=== PATIENT | female | born 1980 | race Caucasian/White ===

== ENCOUNTER 2016-10-24 14:50 | Emergency (ER) | payer OTHER ==
[~2016-10-24] VITALS: Ht 170.2 cm; Wt 66.0 kg
[2016-10-24 15:00] VITALS: TEMP 36.9; Ht 170.2 cm; Wt 66.0 kg
[2016-10-24 17:09] VITALS: O2SAT 100
[2016-10-24] MEDS ORDERED: 5-HY50CA PO (17:29)
[2016-10-24] MEDS ORDERED: NAPR-1169 PO (17:29)
--- NOTE | 2016-10-24 17:53 | DIAGNOSTIC IMAGING REPORT ---
CHEST ONE VIEW PORTABLE HISTORY: Tachycardia. EVALUATE ALTERED MENTAL STATUS/WEAKNESS COMPARISON: None. FINDINGS: The lungs are clear. Cardiac silhouette is normal in size. No pleural effusions. No pneumothorax. IMPRESSION: No acute process. Electronically signed by: Eloy Quezada M.D. 10/24/2016 5:52 PM Dictated Date/Time: 10/24/2016 5:51 PM
[2016-10-24 18:11] LABS: BASO % 0.2 %; BASO ABS # 0.01 K/uL (0-0.2); COMPLETE YES; EOS % 1.3 %; HEMATOCRIT 37.3 % (37-47); LYMPH ABS # 1.68 K/uL (1.2-3.4); MEAN CELL VOLUME 91.4 fL (80-100); MEAN CORPUSCULAR HEMOGLOBIN 31.6 pg (25-34); MEAN CORPUSCULAR HGB CONC 34.6 g/dl (32-36); MEAN PLATELET VOLUME 10.4 fL (7.4-10.4); MONO % 5.7 %; NEUT % 64.8 %; PLATELET COUNT 180 K/uL (130-400); RED BLOOD COUNT 4.08 M/uL (4.2-5.4); WHITE BLOOD COUNT 5.99 K/uL (4.8-10.8)
[2016-10-24 18:30] LABS: BLOOD UREA NITROGEN 15 mg/dl (7-18); BUN/CREATININE RATIO 20.8 (10-20); CALCIUM 9.6 mg/dl (8.5-10.1); CARBON DIOXIDE 25 mmol/L (21-32); CHLORIDE 108 mmol/L (98-107); CREATININE 0.74 mg/dl (0.60-1.20); GLUCOSE 76 mg/dl (70-99); POTASSIUM 3.8 mmol/L (3.5-5.1); SODIUM 144 mmol/L (136-145)
--- NOTE | 2016-10-24 18:54 | EMERGENCY ROOM VISIT NOTE ---
History Report prepared by Darwin: Nadeem Parks Under the Supervision of: Dr. Korey Trujillo D.O. 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 C/o swelling in thyroid area, itciness to throat, N/T to chin and L side of face. Symptoms began this AM. Pt reports episodes of tachycardia in the evening for approx 1 week. History of Present Illness The patient is a 36 year old female who presents to the Emergency Room with complaints of worsening anterior neck swelling beginning this morning. She has a history of Breezy's Disease. She states "there feels like a lump in my neck ", and believes it is likely her Thyroid. The patient has taken medication for hypothyroidism for several years. She states that she has also experienced facial tingling and itchiness. She also states that she has been experiencing intermittent episodes of palpitations and constant chest "heaviness". The patient notes that she has a history of PSVT. She states that she has been having several episodes of palpitations per day. She denies any SOB, nausea, vomiting, diarrhea, or fevers. Source of History: patient Onset: This morning Position: neck (anterior) Quality: other (swelling) Timing: worsening Associated Symptoms: + chest pain ("heaviness"), No SOB, No diarrhea, No fevers, No nausea, No vomiting Note: The patient has experienced intermittent heart palpitations, and neck itchiness and tingling. Review of Systems See HPI for pertinent positives & negatives. A total of 10 systems reviewed and were otherwise negative. Past Medical & Surgical Medical Problems: (1) Breezy's disease (2) PSVT (paroxysmal supraventricular tachycardia) Family History No pertinent family history stated. Social History Smoking Status: Never Smoker Housing Status: lives with family Occupation Status: employed Current/Historical Medications Scheduled 5-Hydroxytryptophan (5-Htp), 50 MG PO HS Levothyroxine Sodium (Levothyroxine Sodium), 50 MCG PO DAILY Melatonin (Melatonin), 3 MG PO HS Naproxen (Naprosyn), 500 MG PO BID Allergies Coded Allergies: Ciprofloxacin (Verified Allergy, Severe, Swelling of throat and tongue, 08/30) Albuterol (Verified Allergy, Intermediate, Itchy throat, 10/24/16) Alprazolam (Verified Allergy, Intermediate, Tackycardia, 10/24/16) Lamotrigine (Verified Allergy, Intermediate, Rash, 10/24/16) Physical Exam Vital Signs Date Time Temp Pulse Resp B/P Pulse Ox O2 Delivery O2 Flow Rate FiO2 10/24/16 17:21 64 10/24/16 17:09 100 Room Air 10/24/16 17:06 100 Room Air 10/24/16 17:05 68 18 115/70 100 Room Air 10/24/16 15:00 36.9 77 18 115/75 100 Room Air Physical Exam CONSTITUTIONAL/VITAL SIGNS: Reviewed / noted above. GENERAL: Non-toxic in appearance. INTEGUMENTARY: Warm, dry, and [place]. HEAD: Normocephalic. EYES: without scleral icterus or trauma. ENT/OROPHARYNX: clear and moist. LYMPHADENOPATHY/NECK: Is supple without lymphadenopathy or meningismus. RESPIRATORY: Lungs clear and equal. CARDIOVASCULAR: Regular rate and rhythm. GI/ABDOMEN: Soft and nontender. No organomegaly or pulsatile mass. No rebound or guarding. Normal bowel sounds. EXTREMITIES: Warm and well perfused. BACK: No CVA tenderness. NEUROLOGICAL: Intact without focal deficits. PSYCHIATRIC: normal affect. MUSCULOSKELETAL: Normally developed with good muscle tone. Medical Decision & Procedures ER Provider Diagnostic Interpretation: X ray results and stated below per my interpretation and radiology interpretation. CHEST ONE VIEW PORTABLE FINDINGS: The lungs are clear. Cardiac silhouette is normal in size. No pleural effusions. No pneumothorax. IMPRESSION: No acute process. Electronically signed by: Eloy Quezada M.D. 10/24/2016 5:52 PM Laboratory Results 10/24/16 17:40 Red Blood Count 4.08, Mean Corpuscular Volume 91.4, Mean Corpuscular Hemoglobin 31.6, Mean Corpuscular Hemoglobin Concent 34.6, Mean Platelet Volume 10.4, Neutrophils (%) (Auto) 64.8, Lymphocytes (%) (Auto) 28.0, Monocytes (%) (Auto) 5.7, Eosinophils (%) (Auto) 1.3, Basophils (%) (Auto) 0.2, Neutrophils # (Auto) 3.88, Lymphocytes # (Auto) 1.68, Monocytes # (Auto) 0.34, Eosinophils # (Auto) 0.08, Basophils # (Auto) 0.01 10/24/16 17:40 Test 10/24/16 17:40 White Blood Count 5.99 K/uL (4.8-10.8) Red Blood Count 4.08 M/uL (4.2-5.4) Hemoglobin 12.9 g/dL (12.0-16.0) Hematocrit 37.3 % (37-47) Mean Corpuscular Volume 91.4 fL (80-100) Mean Corpuscular Hemoglobin 31.6 pg (25-34) Mean Corpuscular Hemoglobin Concent 34.6 g/dl (32-36) Platelet Count 180 K/uL (130-400) Mean Platelet Volume 10.4 fL (7.4-10.4) Neutrophils (%) (Auto) 64.8 % Lymphocytes (%) (Auto) 28.0 % Monocytes (%) (Auto) 5.7 % Eosinophils (%) (Auto) 1.3 % Basophils (%) (Auto) 0.2 % Neutrophils # (Auto) 3.88 K/uL (1.4-6.5) Lymphocytes # (Auto) 1.68 K/uL (1.2-3.4) Monocytes # (Auto) 0.34 K/uL (0.11-0.59) Eosinophils # (Auto) 0.08 K/uL (0-0.5) Basophils # (Auto) 0.01 K/uL (0-0.2) RDW Standard Deviation 42.4 fL (36.4-46.3) RDW Coefficient of Variation 12.7 % (11.5-14.5) Immature Granulocyte % (Auto) 0.0 % Immature Granulocyte # (Auto) 0.00 K/uL (0.00-0.02) D-Dimer 480 ug/L FEU (0-500) Anion Gap 11.0 mmol/L (3-11) Est Creatinine Clear Calc Drug Dose 104.2 ml/min Estimated GFR () 122.5 Estimated GFR (Non- 105.7 BUN/Creatinine Ratio 20.8 (10-20) Calcium Level 9.6 mg/dl (8.5-10.1) Troponin I < 0.015 ng/ml (0-0.045) Thyroid Stimulating Hormone (TSH) 5.230 uIu/ml (0.300-4.500) Free Thyroxine 0.88 ng/dl (0.80-1.60) Free Triiodothyronine 2.45 pg/ml (2.30-4.20) Laboratory results as stated above per my review. ECG Indication: chest pain Rate (beats per minute): 60 Rhythm: sinus rhythm Findings: no acute ischemic change, no ectopy ED Course 1715: Previous medical records were reviewed. The patient was evaluated in room C6. A complete history and physical examination was performed. 1850: On reevaluation, the patient is resting comfortably. I discussed the results and findings with the patient. She verbalized agreement of the treatment plan. She was discharged home. Medical Decision Differential diagnosis: Etiologies such as metabolic, infection, hypo/hyperglycemia, electrolyte abnormalities, cardiac sources, intracerebral event, toxicologic, neurologic, as well as others were entertained. This is a 36-year-old female who presents to the ED with a chief complaint of a sensation of her thyroid swelling as well as some intermittent tachycardia or palpitations. She states that her throat feels a little itchy and tingly. The patient was concerned about her thyroid function. Her vital signs are normal. EKG shows a sinus rhythm. Normal rate. Blood work reveals a normal d-dimer and normal troponin. CBC is normal. Free T4 and free T3 are normal. PRP was normal. Chest x-ray did not show acute disease. The patient was told the results of the test. Her exam was normal. She was felt to be stable for discharge. Impression Primary Impression: Palpitation Scribe Attestation The scribe's documentation has been prepared under my direction and personally reviewed by me in its entirety. I confirm that the note above accurately reflects all work, treatment, procedures, and medical decision making performed by me. Departure Information Dispostion Home / Self-Care Referrals No Doctor, Assigned (PCP) Patient Instructions A Signature Page, [facility] Additional Instructions Blood work here was unremarkable for any acute process. Chest x-ray and EKG were also without abnormality. Follow-up with your doctor for further care and evaluation in 1-7 days if symptoms persist. Return to the emergency department for worsening or new symptoms or any concerns. You have been examined and treated today on an emergency basis only. This is not a substitute for, or an effort to provide, complete comprehensive medical care. It is impossible to recognize and treat all injuries or illnesses in a single emergency department visit. It is therefore important that you follow up closely with your doctor. Call as soon as possible for an appointment.
[2016-10-24 19:11] VITALS: BP 101/73; PULSE 74; O2SAT 100
[2017-07-13] MEDS ORDERED: MELA3TAB PO (17:29)
[2017-07-13] MEDS ORDERED: LEVO50TA6 PO (17:29)
[2017-07-13] MEDS ORDERED: CYAN100020 PO (19:24)
[2017-07-13] MEDS ORDERED: IBUP-103 PO (19:24)
[2017-07-13] MEDS ORDERED: B-COTAB18 PO (19:24)
[2017-07-13] MEDS ORDERED: ACET-1256 PO (19:24)
[2017-07-13] MEDS ORDERED: MULT-240 PO (19:24)
== END 2016-10-24 19:12 | disposition home or self-care (01) ==
LOC: C.EDB 14:52 → C.EDC 19:12
DX: R00.2 Palpitations (principal); E06.3 Autoimmune thyroiditis; Z79.899 Other long term (current) drug therapy

== ENCOUNTER 2016-12-06 13:01 | Emergency (ER) | payer OTHER ==
[~2016-12-06] VITALS: Ht 170.2 cm; Wt 62.0 kg
[~2016-12-06 13:01] MED LIST: 5-HY50CA PO; NAPR-1169 PO
[2016-12-06 13:11] VITALS: TEMP 36.9; Ht 170.2 cm; Wt 62.0 kg
[2016-12-06 14:01] LABS: BLOOD UREA NITROGEN 11 mg/dl (7-18); BUN/CREATININE RATIO 12.6 (10-20); CALCIUM 8.7 mg/dl (8.5-10.1); CARBON DIOXIDE 25 mmol/L (21-32); CHLORIDE 103 mmol/L (98-107); CREATININE 0.84 mg/dl (0.60-1.20); GLUCOSE 77 mg/dl (70-99); POTASSIUM 3.9 mmol/L (3.5-5.1); SODIUM 138 mmol/L (136-145)
[2016-12-06 14:04] LABS: ALB/GLOB RATIO 1.2 (0.9-2); ALKALINE PHOSPHATASE 63 U/L (45-117); ALT/SGPT 19 U/L (12-78); AST/SGOT 26 U/L (15-37)
[2016-12-06] MEDS ORDERED: METHYLPREDNISOLONE 125 MG VIAL IV STA (14:05)
[2016-12-06] MEDS ORDERED: ACETAMINOPHEN 500 MG TAB PO STA (14:05)
[2016-12-06] MEDS ORDERED: KETOROLAC TROMETHAMINE 30 MG/ML VIAL IV STA (14:05)
[2016-12-06] MEDS ORDERED: SODIUM CHLORIDE 0.9% 1000ML 1,000 ML IV ONE (14:15)
--- NOTE | 2016-12-06 14:39 | DIAGNOSTIC IMAGING REPORT ---
CHEST 2 VIEWS ROUTINE CLINICAL HISTORY: Cough. Fever. Dyspnea COMPARISON STUDY: 10/24/2016 FINDINGS: The bones soft tissues and hemidiaphragms are normal. The cardiomediastinal silhouette is normal. The lungs are clear. The pulmonary vasculature is normal. IMPRESSION: Negative chest. Electronically signed by: Ron Zelaya M.D. 12/06/2016 2:38 PM Dictated Date/Time: 12/06/2016 2:37 PM
[2016-12-06 14:44] LABS: HEMATOCRIT 44.2 % (37-47); MEAN CELL VOLUME 89.3 fL (80-100); MEAN CORPUSCULAR HEMOGLOBIN 30.9 pg (25-34); MEAN CORPUSCULAR HGB CONC 34.6 g/dl (32-36); MEAN PLATELET VOLUME 10.9 fL (7.4-10.4); PLATELET COUNT 115 K/uL (130-400); RED BLOOD COUNT 4.95 M/uL (4.2-5.4); WHITE BLOOD COUNT 2.08 K/uL (4.8-10.8)
[2016-12-06 14:51] LABS: BASO % 0.5 %; BASO ABS # 0.01 K/uL (0-0.2); COMPLETE YES; EOS % 0.5 %; LYMPH % 46.6 %; LYMPH ABS # 0.97 K/uL (1.2-3.4); MONO % 12.5 %; NEUT % 39.9 %
[2016-12-06] MEDS ORDERED: OPTIRAY 320 IV PRN (15:00)
--- NOTE | 2016-12-06 16:03 | DIAGNOSTIC IMAGING REPORT ---
CT ANGIOGRAM OF THE CHEST CLINICAL HISTORY: Cough, fever, chest pain, elevated d-dimer. COMPARISON STUDY: Chest x-ray dated 12/06/2016 TECHNIQUE: Following the IV administration of 75 mL of Optiray-320, CT angiogram of the thorax was performed from the thoracic inlet to the lung bases utilizing the pulmonary embolus protocol. Images are reviewed in the axial, sagittal, and coronal planes. IV contrast was administered without complication. MIP imaging was performed. CT DOSE: 210.16 mGy.cm FINDINGS: There is a punctate nonobstructing left renal calculus. No pathologically enlarged axillary mediastinal or hilar lymph nodes were visualized. There was no evidence of thoracic aortic dilatation. There were no pulmonary artery filling defects to indicate acute pulmonary embolism. No pleural effusions are visualized. There are minimal dependent atelectatic changes. There are no areas of pulmonary consolidation to indicate a pneumonia. IMPRESSION: 1. No CT evidence of acute pulmonary embolism 2. No evidence of focal pulmonary consolidation 3. Punctate nonobstructing left renal calculus Electronically signed by: Glenn Gunter M.D. 12/06/2016 4:02 PM Dictated Date/Time: 12/06/2016 3:59 PM
[2016-12-06] MEDS ORDERED: ONDA4TAB10 SL (17:17)
[2016-12-06 17:35] VITALS: BP 107/72; PULSE 67; O2SAT 96
--- NOTE | 2016-12-07 00:07 | EMERGENCY ROOM VISIT NOTE ---
History First contact with patient: 13:52 Chief Complaint: FLU LIKE SX Stated Complaint: FLU, COUGH, PAIN, LOW BP, SENT BY URGENT CARE History of Present Illness The patient is a 36 year old female who presents to the Emergency Room with complaints of flulike symptoms off and on for the past 7 days. The patient states that she began with a persistent dry cough one week ago today. She states that she developed a fever around 4 days ago, and has had a worsening cough. She has not been eating or drinking well because of her symptoms. She does have some posttussive chest pain. The patient does have a history of asthma and feels that at times it is difficult to get a full breath. She is allergic to albuterol, and does not have inhalers at home. She went to urgent care today, and was found to have a low blood pressure, and was referred to the ER for further management. The patient feels weak and sick. She states that her maximum fever at home has been 102F. This has been fairly well controlled with dyli-zud-yfobvzh ibuprofen and Tylenol, however she is not taking any of that today. She rates her overall discomfort 6/10. Review of Systems More than 10 systems were reviewed and otherwise negative with the exception of history of present illness. Past Medical/Surgical History Medical Problems: (1) Josee's disease (2) PSVT (paroxysmal supraventricular tachycardia) Family History No pertinent family history Social History Smoking Status: Never Smoker Housing Status: lives with family Occupation Status: employed Current/Historical Medications Scheduled Levothyroxine Sodium (Levothyroxine Sodium), 50 MCG PO DAILY Melatonin (Melatonin), 3 MG PO HS Ondasetron Odt (Zofran Odt), 4 MG SL Q6H Allergies Coded Allergies: Ciprofloxacin (Verified Allergy, Severe, Swelling of throat and tongue, ) Albuterol (Verified Allergy, Intermediate, Itchy throat, 12/06/16) Alprazolam (Verified Allergy, Intermediate, Tackycardia, 12/06/16) Lamotrigine (Verified Allergy, Intermediate, Rash, 12/06/16) Physical Exam Vital Signs Date Time Temp Pulse Resp B/P Pulse Ox O2 Delivery O2 Flow Rate FiO2 12/06/16 17:35 67 18 107/72 96 12/06/16 17:06 79 18 110/77 100 Room Air 12/06/16 15:40 76 18 105/75 98 Room Air 12/06/16 13:11 36.9 84 17 108/76 99 Room Air Physical Exam VITALS: Vitals are noted on the nurse's note and reviewed by myself. Vital signs stable. GENERAL: Well-developed, well-nourished, white female who appears ill but not toxic on examination. Patient is cooperative with the examination. HEAD: Normocephalic atraumatic. EARS: External ear normal. External auditory canals clear, tympanic membranes pearly ramirez without erythema or effusion bilaterally. EYES: Pupils equal round and reactive to light and accommodation. Conjunctivae without injection, sclerae without icterus. Extraocular movements intact. NOSE: Patent, turbinates without inflammation or discharge. MOUTH: Mucous membranes moist. Tonsils are not enlarged. Pharynx without erythema, blood, or exudate. Uvula midline. Airway patent. NECK: Supple without nuchal rigidity. No lymphadenopathy. No thyromegaly. Cervical spine is nontender. HEART: Regular rate and rhythm without murmurs gallops or rubs. LUNGS: Clear to auscultation bilaterally without wheezes, rales or rhonchi. No retractions or accessory muscle use. ABDOMEN: Positive normal bowel sounds x 4. Soft, nontender, without masses or organomegaly. No guarding or rebound tenderness. MUSCULOSKELETAL: No muscle atrophy, erythema, or edema noted. Full range of motion without joint tenderness in all extremities. Medical Decision & Procedures ER Provider Diagnostic Interpretation: CHEST 2 VIEWS ROUTINE CLINICAL HISTORY: Cough. Fever. Dyspnea COMPARISON STUDY: 10/24/2016 FINDINGS: The bones soft tissues and hemidiaphragms are normal. The cardiomediastinal silhouette is normal. The lungs are clear. The pulmonary vasculature is normal. IMPRESSION: Negative chest. CT ANGIOGRAM OF THE CHEST CLINICAL HISTORY: Cough, fever, chest pain, elevated d-dimer. COMPARISON STUDY: Chest x-ray dated 12/06/2016 TECHNIQUE: Following the IV administration of 75 mL of Optiray-320, CT angiogram of the thorax was performed from the thoracic inlet to the lung bases utilizing the pulmonary embolus protocol. Images are reviewed in the axial, sagittal, and coronal planes. IV contrast was administered without complication. MIP imaging was performed. CT DOSE: 210.16 mGy.cm FINDINGS: There is a punctate nonobstructing left renal calculus. No pathologically enlarged axillary mediastinal or hilar lymph nodes were visualized. There was no evidence of thoracic aortic dilatation. There were no pulmonary artery filling defects to indicate acute pulmonary embolism. No pleural effusions are visualized. There are minimal dependent atelectatic changes. There are no areas of pulmonary consolidation to indicate a pneumonia. IMPRESSION: 1. No CT evidence of acute pulmonary embolism 2. No evidence of focal pulmonary consolidation 3. Punctate nonobstructing left renal calculus Laboratory Results 12/06/16 13:35 Red Blood Count 4.95, Mean Corpuscular Volume 89.3, Mean Corpuscular Hemoglobin 30.9, Mean Corpuscular Hemoglobin Concent 34.6, Mean Platelet Volume 10.9, Neutrophils (%) (Auto) 39.9, Lymphocytes (%) (Auto) 46.6, Monocytes (%) (Auto) 12.5, Eosinophils (%) (Auto) 0.5, Basophils (%) (Auto) 0.5, Neutrophils # (Auto ) 0.83, Lymphocytes # (Auto) 0.97, Monocytes # (Auto) 0.26, Eosinophils # (Auto ) 0.01, Basophils # (Auto) 0.01 12/06/16 13:35 Test 12/06/16 13:29 12/06/16 13:35 Influenza Type A Antigen Neg for Influ A (NEG) Influenza Type B Antigen Neg for Influ B (NEG) White Blood Count 2.08 K/uL (4.8-10.8) Red Blood Count 4.95 M/uL (4.2-5.4) Hemoglobin 15.3 g/dL (12.0-16.0) Hematocrit 44.2 % (37-47) Mean Corpuscular Volume 89.3 fL (80-100) Mean Corpuscular Hemoglobin 30.9 pg (25-34) Mean Corpuscular Hemoglobin Concent 34.6 g/dl (32-36) Platelet Count 115 K/uL (130-400) Mean Platelet Volume 10.9 fL (7.4-10.4) Neutrophils (%) (Auto) 39.9 % Lymphocytes (%) (Auto) 46.6 % Monocytes (%) (Auto) 12.5 % Eosinophils (%) (Auto) 0.5 % Basophils (%) (Auto) 0.5 % Neutrophils # (Auto) 0.83 K/uL (1.4-6.5) Lymphocytes # (Auto) 0.97 K/uL (1.2-3.4) Monocytes # (Auto) 0.26 K/uL (0.11-0.59) Eosinophils # (Auto) 0.01 K/uL (0-0.5) Basophils # (Auto) 0.01 K/uL (0-0.2) RDW Standard Deviation 40.7 fL (36.4-46.3) RDW Coefficient of Variation 12.5 % (11.5-14.5) Immature Granulocyte % (Auto) 0.0 % Immature Granulocyte # (Auto) 0.00 K/uL (0.00-0.02) Red Blood Cell Morphology Unremarkable D-Dimer 510 ug/L FEU (0-500) Anion Gap 10.0 mmol/L (3-11) Est Creatinine Clear Calc Drug Dose 91.8 ml/min Estimated GFR () 105.1 Estimated GFR (Non- 90.7 BUN/Creatinine Ratio 12.6 (10-20) Calcium Level 8.7 mg/dl (8.5-10.1) Total Bilirubin 0.3 mg/dl (0.2-1) Aspartate Amino Transf (AST/SGOT) 26 U/L (15-37) Alanine Aminotransferase (ALT/SGPT) 19 U/L (12-78) Alkaline Phosphatase 63 U/L (45-117) Troponin I < 0.015 ng/ml (0-0.045) Total Protein 7.5 gm/dl (6.4-8.2) Albumin 4.1 gm/dl (3.4-5.0) Globulin 3.4 gm/dl (2.5-4.0) Albumin/Globulin Ratio 1.2 (0.9-2) Medications Administered Medications (Trade) Dose Ordered Sig/Sharda Route Start Time Stop Time Status Last Admin Dose Admin Sodium Chloride (Nss 1000ml) 1,000 ml @ 999 mls/hr Q1H1M ONCE IV 12/06/16 14:15 12/06/16 15:15 DC 12/06/16 15:39 999 MLS/HR Methylprednisolone Sodium Succinate (Solu-Medrol IV) 125 mg NOW STAT IV 12/06/16 14:05 12/06/16 14:07 DC 12/06/16 15:38 125 MG Ketorolac Tromethamine (Toradol Inj) 30 mg NOW STAT IV 12/06/16 14:05 12/06/16 14:07 DC 12/06/16 15:39 30 MG Acetaminophen (Tylenol Tab) 1,000 mg NOW STAT PO 12/06/16 14:05 12/06/16 14:07 DC 12/06/16 15:39 1,000 MG ED Course Physical exam and history were performed. Nursing notes and EMR were reviewed. Patient appears to have flulike symptoms for the past several days. She appears ill but nontoxic on examination. The patient was hydrated and medicated as above. Chest x-ray was performed. EKG was normal sinus rhythm without ST elevation or evidence of ischemia. Viral swabs were performed. The patient was reevaluated multiple times the course of her stay. She does have a decreased neutrophil count here in the department. Review of labs from one month ago shows this is a new finding. The patient d-dimer was elevated and CT scan of her chest was performed. Troponin [address] scan shows no acute process within the chest. Chest x-ray is also without acute findings. The patient was monitored closely for several hours here in the emergency department. She did not have deterioration of her symptoms, and felt much better after hydration and steroids. Clinically the patient does appear well for discharge home provided that she have very close follow-up with her primary care physician's office. Recommended that she try to be seen with in 24-36 hours for recheck of her condition. I also asked her to return to the ER if she was not able to be seen by her primary care physician's office. She will need her blood counts rechecked. I do feel that her symptoms are likely related to a viral infection, and seeing is that she is otherwise healthy should improve over the next few days with supportive measures. The patient and family were quite pleased with this. They understand the importance of returning to the ER with any new, worsening, or concerning symptoms. The patient rated her discomfort a 2/10 at the time of departure. The chart was completed utilizing [employer] Voice Recognition Software. Grammatical errors, random word insertions, pronoun errors, and incomplete sentences are an occasional consequence of this system due to software limitations, ambient noise, and hardware issues. Any formal questions or concerns about the content, text, or information contained within the body of this dictation should be directly addressed to the provider for clarification. . Medical Decision Differential diagnosis: Etiologies such as viral syndrome, otitis, pharyngitis, pneumonia, influenza, meningitis, urinary tract infection, sepsis, bacteremia, as well as others were entertained. Impression Primary Impression: Influenza-like symptoms Additional Impressions: Neutropenia associated with infection Nausea Departure Information Prescriptions Ondasetron Odt (ZOFRAN ODT) 4 Mg Tab 4 MG SL Q6H for Nausea, #12 TAB Prov: Perry Aragon PA-C 12/06/16 Referrals No Doctor, Assigned (PCP) Patient Instructions [facility] Problem Qualifiers
[2017-07-13] MEDS ORDERED: LEVO50TA6 PO (17:29)
[2017-07-13] MEDS ORDERED: MELA3TAB PO (17:29)
[2017-07-13] MEDS ORDERED: B-COTAB18 PO (19:24)
[2017-07-13] MEDS ORDERED: IBUP-103 PO (19:24)
[2017-07-13] MEDS ORDERED: MULT-240 PO (19:24)
[2017-07-13] MEDS ORDERED: ACET-1256 PO (19:24)
[2017-07-13] MEDS ORDERED: CYAN100020 PO (19:24)
== END 2016-12-06 17:37 | disposition home or self-care (01) ==
LOC: C.EDB 13:03
DX: J11.1 Influenza due to unidentified influenza virus with other respiratory manifestations (principal); D70.3 Neutropenia due to infection; R11.0 Nausea; E06.3 Autoimmune thyroiditis; Z79.899 Other long term (current) drug therapy

== ENCOUNTER 2017-06-09 18:41 | Emergency (ER) | payer OTHER ==
[~2017-06-09] VITALS: Ht 170.2 cm; Wt 61.3 kg
[2017-06-09 18:50] VITALS: BP 129/89; PULSE 75; TEMP 36.8; O2SAT 97; Ht 170.2 cm; Wt 61.3 kg
--- NOTE | 2017-06-09 19:24 | EMERGENCY ROOM VISIT NOTE ---
ED Visit Note First contact with patient: 18:52 CHIEF COMPLAINT: Right upper dental pain 2 weeks HISTORY OF PRESENT ILLNESS: Patient is a 37-year-old white female who presents the emergency department for evaluation of right upper dental pain. She had a root canal on the tooth many years ago, but states that she has had problems since the procedure. She ate noted increasing pain in the tooth over the last 2 weeks, in the last 2-3 days the pain has begun to radiate along the right upper and lower jaw line, is spreading to the right cheek, and the right muslim and is giving her headache. She has been alternating Tylenol and ibuprofen. She was seen at a [facility] facility yesterday and started on amoxicillin. She has had a total of 3 doses. The pain is a constant 7-8/10, but occasionally radiates up to a 10/10. She tried to contact her dentist, but there was no one in the office as it was the weekend. She plans on calling tomorrow. She denies any drainage or discharge. No fever or chills. She does note some numbness in her right cheek. There is been no facial swelling. REVIEW OF SYSTEMS: Review of systems as per HPI. All other systems reviewed were negative. At least 6 systems reviewed. PMH: Electronic medical records are reviewed and summarized as above/below. See Problem List. SOCIAL HISTORY: Patient lives at home with her and children. She does not smoke. PHYSICAL EXAM: Vital Signs: Reviewed Nurse's notes. CONSTITUTIONAL: Patient is a well-appearing 37-year-old white female who is awake and alert and in no acute distress. Vital signs are stable. EARS: Tympanic membranes intact, not inflamed, have normal contour. External canals clear. MOUTH: Overall the patient has good dentition. The right upper first molar in question has a cap in place. Tooth is tender to percussion. There is slight swelling along the gumline although no focal abscess. Mucous membranes moist, no lesions, tongue and gums appear normal. THROAT: No pharyngeal injection, exudates, or tonsillar hypertrophy. Airway is patent. No trismus noted. FACE: No facial swelling is appreciated. No cellulitic changes. NECK: No lymphadenopathy. ED course: The patient was seen and evaluated as above. Her old records were reviewed. She is covered appropriately with amoxicillin. She has been using [id number] medications without relief. She was given a [place] home pack and a prescription for [place] that she can use for severe pain. She was encouraged to contact a dentist as soon as possible for definitive care and management. She does not have any evidence for drainable abscess, facial cellulitis or Gael's angina. Medication reconciliation: I attest that I have personally reviewed the patient' s current medication list. Patient was reviewed in the [facility] Prescription Drug Monitoring Program, and there was no record noted for this patient. Blood pressure screening : Patient was found to have normal blood pressure on screening and does not require follow-up. Problem List Medical Problems: (1) Asthma Status: Chronic (2) Endometriosis Status: Resolved (3) Gastroparesis Status: Chronic (4) Josee's disease Status: Chronic (5) Influenza-like symptoms Status: Resolved (6) Influenza-like symptoms Status: Resolved (7) Kidney stones Status: Chronic (8) Nausea Status: Resolved (9) Nausea Status: Resolved (10) Neutropenia associated with infection Status: Resolved (11) Neutropenia due to infection Status: Resolved (12) Palpitation Status: Resolved (13) PSVT (paroxysmal supraventricular tachycardia) Status: Resolved (14) Stomach problems Status: Chronic Surgical Problems: (1) History of appendectomy Status: Resolved (2) History of hysterectomy Status: Resolved Current/Historical Medications Scheduled B-Complex Vitamins (Vitamin B Complex), 1 TAB PO DAILY Cyanocobalamin (Vitamin B12), 1,000 MCG PO DAILY Levothyroxine Sodium (Levothyroxine Sodium), 50 MCG PO DAILY Melatonin (Melatonin), 3 MG PO HS Multiple Vitamins W/ Minerals (Womens One Daily), 1 TAB PO DAILY Scheduled PRN Acetaminophen (Tylenol), 1,000 MG PO Q6H PRN for Pain Hydrocodone/Acetaminophen 5MG/325MG ([place] 5MG/325MG), 1-2 TABLETS PO Q4 PRN for Pain Ibuprofen Tab (Advil), 800 MG PO Q8 PRN for Pain Allergies Coded Allergies: Ciprofloxacin (Verified Allergy, Severe, Swelling of throat and tongue, ) Albuterol (Verified Allergy, Intermediate, Itchy throat, 12/06/16) Alprazolam (Verified Allergy, Intermediate, Tackycardia, 12/06/16) Lamotrigine (Verified Allergy, Intermediate, Rash, 12/06/16) Vital Signs Date Time Temp Pulse Resp B/P (MAP) Pulse Ox O2 Delivery O2 Flow Rate FiO2 06/09/17 18:50 36.8 75 18 129/89 97 Room Air Departure Information Impression Primary Impression: Dentalgia Prescriptions Hydrocodone/Acetaminophen 5MG/325MG ([place] 5MG/325MG) Tab 1-2 TABLETS PO Q4 Y for Pain, #20 TAB For Initial Treatment Prov: Anastasiia Rodas PA 06/09/17 Referrals Chanelle GARCIA M.D. (PCP) Patient Instructions My [facility] Additional Instructions Complete amoxicillin as prescribed. Ibuprofen(Motrin, Advil) may be used for fever or pain. Use 600mg every six hours as needed. Take with food. Avoid using more than 2400mg in a 24 hour period. Do not use 2400mg per day for more than three consecutive days without physician direction. Prolonged inappropriate use can lead to stomach upset or ulcers. (AND/OR) Acetaminophen(Tylenol) may be used for fever or pain. Use 1000mg every six hours as needed. Avoid using more than 4000mg in a 24 hour period. Hydrocodone/Acetaminophen ([place]) 5/325 mg: Take 1-2 pills every 4-6 hours for breakthrough pain. Avoid alcohol, operating machinery or dangerous equipment, working on ladders or roofs, DRIVING, or situations where being under the influence may be dangerous. It is recommended to use an adji-fqp-gbtylkv stool softener such as Colace, 100mg twice daily while taking this medication to avoid constipation. Saltwater gargles after meals and before bedtime. Soft foods. Followup with your dentist for definitive management. You may also follow up with your primary care physician for pain/care management until you can be seen by your dentist.
[2017-06-09] MEDS ORDERED: NORCO 5/325MG HOME PACK PO ONE (19:30)
[2017-06-09] MEDS ORDERED: HYDR-5688 PO (19:32)
[2017-07-13] MEDS ORDERED: MELA3TAB PO (17:29)
[2017-07-13] MEDS ORDERED: LEVO50TA6 PO (17:29)
[2017-07-13] MEDS ORDERED: MULT-240 PO (19:24)
[2017-07-13] MEDS ORDERED: ACET-1256 PO (19:24)
[2017-07-13] MEDS ORDERED: CYAN100020 PO (19:24)
[2017-07-13] MEDS ORDERED: B-COTAB18 PO (19:24)
[2017-07-13] MEDS ORDERED: IBUP-103 PO (19:24)
== END 2017-06-09 19:39 | disposition home or self-care (01) ==
LOC: C.EDB 18:42 → C.EDD 19:39
DX: K08.89 Other specified disorders of teeth and supporting structures (principal); J45.909 Unspecified asthma, uncomplicated; K31.84 Gastroparesis; E06.3 Autoimmune thyroiditis; Z87.442 Personal history of urinary calculi; Z79.899 Other long term (current) drug therapy

== ENCOUNTER 2017-07-13 21:07 | Emergency (ER) | payer OTHER ==
[~2017-07-13] VITALS: Ht 170.2 cm; Wt 60.0 kg
[~2017-07-13 21:07] MED LIST changes: -5-HY50CA PO; +ACET-1256 PO; +B-COTAB18 PO; +CYAN100020 PO; +HYDR-5688 PO; +IBUP-103 PO; +LEVO50TA6 PO; +MELA3TAB PO; +MULT-240 PO; -NAPR-1169 PO
[2017-07-13 21:16] VITALS: TEMP 36.9; Ht 170.2 cm; Wt 60.0 kg
[2017-07-13] MEDS ORDERED: HYDR-5688 PO (21:34)
[2017-07-13] MEDS ORDERED: CYCL10TA6 PO (21:34)
[2017-07-13] MEDS ORDERED: LEVO75TA PO (21:34)
[2017-07-13] MEDS ORDERED: CHOL2000 PO (21:34)
--- NOTE | 2017-07-13 22:21 | DIAGNOSTIC IMAGING REPORT ---
PELVIS 1 OR 2 VIEW ROUTINE CLINICAL HISTORY: 37 years-old Female presenting with left hip pain, fall. TECHNIQUE: Single frontal view of the pelvis was obtained. COMPARISON: None. FINDINGS: Bony pelvis intact. Pubic symphysis, sacroiliac joints, and hip joints congruent. No degenerative change of the lower lumbar spine. Mild stool burden. IMPRESSION: No acute osseous injury of the pelvis. Electronically signed by: Dm Conte M.D. 07/13/2017 10:19 PM Dictated Date/Time: 07/13/2017 10:18 PM
--- NOTE | 2017-07-13 22:22 | DIAGNOSTIC IMAGING REPORT ---
L FEMUR 2 VIEWS ROUTINE CLINICAL HISTORY: 37 years-old Female presenting with left hip pain, fall. TECHNIQUE: Frontal and lateral views of the left femur were obtained. COMPARISON: None. FINDINGS: Left hip joint congruent. No acute fracture or malalignment. Knee joint congruent. No knee joint effusion. No significant degenerative change. Regional soft tissues within normal limits. IMPRESSION: No acute osseous injury of the left femur. Electronically signed by: Dm Conte M.D. 07/13/2017 10:21 PM Dictated Date/Time: 07/13/2017 10:19 PM
--- NOTE | 2017-07-13 22:38 | EMERGENCY ROOM VISIT NOTE ---
History First contact with patient: 21:26 Chief Complaint: HIP PAIN Stated Complaint: L HIP PAIN AFET FALL History of Present Illness The patient is a 37 year old female who presents to the Emergency Room with complaints of left hip pain after a fall. The patient states that she fell while playing with her children today and twisted her left leg. She reports pain in the front of the left hip which radiates down into the knee and lower leg. She reports this as a burning sensation and rates the discomfort a 6/10. She has been using crutches to help with ambulation. She reports she used ice and rested the hip without relief. She denies any other injuries. She denies any numbness or weakness. Review of Systems A complete 10 point review of systems was reviewed with the patient with pertinent positives and negatives as per history of present illness. All else were negative. Past Medical/Surgical History Medical Problems: (1) Asthma (2) Endometriosis (3) Gastroparesis (4) Josee's disease (5) Influenza-like symptoms (6) Influenza-like symptoms (7) Kidney stones (8) Nausea (9) Nausea (10) Neutropenia associated with infection (11) Neutropenia due to infection (12) Palpitation (13) PSVT (paroxysmal supraventricular tachycardia) (14) Stomach problems Surgical Problems: (1) History of appendectomy (2) History of hysterectomy Social History Smoking Status: Never Smoker Housing Status: lives with family Occupation Status: employed Current/Historical Medications Scheduled B-Complex Vitamins (Vitamin B Complex), 1 TAB PO DAILY Cholecalciferol (Vitamin D3), 3 CAP PO DAILY Cyanocobalamin (Vitamin B12), 1,000 MCG PO DAILY Levothyroxine Sodium (Levothyroxine Sodium), 50 MCG PO MWF Levothyroxine Sodium (Synthroid), 75 MCG PO 4XWK Melatonin (Melatonin), 3 MG PO HS Multiple Vitamins W/ Minerals (Womens One Daily), 1 TAB PO DAILY Scheduled PRN Acetaminophen (Tylenol), 1,000 MG PO Q6H PRN for Pain Cyclobenzaprine Hcl (Flexeril), 10 MG PO HS PRN for Muscle Spasms Hydrocodone/Acetaminophen 5MG/325MG ([place] 5MG/325MG), 1-2 TABLET PO Q4 PRN for Pain Ibuprofen Tab (Advil), 800 MG PO Q8 PRN for Pain Physical Exam Vital Signs Date Time Temp Pulse Resp B/P (MAP) Pulse Ox O2 Delivery O2 Flow Rate FiO2 07/13/17 21:16 36.9 94 18 104/70 99 Room Air Physical Exam VITALS: Vitals are noted on the nurse's note and reviewed by myself. Vital signs stable. GENERAL: This is a 37-year-old female, in no acute distress, nondiaphoretic, well-developed well-nourished. SKIN: No erythema or ecchymosis noted. MUSCULOSKELETAL: There is tenderness to palpation across the left anterior hip. Range of motion somewhat limited secondary to patient discomfort. No tenderness of the distal femur or knee. NEURO: Patient was alert and oriented to person place and time. Normal sensation to light and sharp touch. Medical Decision & Procedures ER Provider Diagnostic Interpretation: L FEMUR 2 VIEWS ROUTINE FINDINGS: Left hip joint congruent. No acute fracture or malalignment. Knee joint congruent. No knee joint effusion. No significant degenerative change. Regional soft tissues within normal limits. IMPRESSION: No acute osseous injury of the left femur. PELVIS 1 OR 2 VIEW ROUTINE FINDINGS: Bony pelvis intact. Pubic symphysis, sacroiliac joints, and hip joints congruent. No degenerative change of the lower lumbar spine. Mild stool burden. IMPRESSION: No acute osseous injury of the pelvis. Medical Decision Differential diagnosis includes fracture, contusion, dislocation, muscle strain , among others. The patient was evaluated as above. X-rays of the femur and pelvis were performed and were negative for any acute findings. The patient most likely suffered a muscle strain. Conservative measures were discussed. She has crutches at home which she has been using and will continue to use these. She was encouraged to follow-up with her primary care provider this week if she has persistent pain or difficulty walking. She verbalized understanding of my assessment and treatment plan and was discharged home in good condition. Medication Reconcilliation Current Medication List: was personally reviewed by me Blood Pressure Screening Patient's blood pressure: Normal blood pressure Impression Primary Impression: Strain of left hip Departure Information Dispostion Home / Self-Care Condition GOOD Referrals Chanelle GARCIA M.D. (PCP) Patient Instructions My [facility] Additional Instructions Use the crutches to help walk until you are able to walk without pain. For pain control, you can use the following aqrl-lop-fhhhogx medicines (if >12 yo): - Regular strength (325mg/tab) Tylenol (acetaminophen) 2 tabs every 4-6 hours as needed. Do not exceed 12 tablets in a 24 hour period. Avoid taking more than 4 grams (4000 mg) of Tylenol per day. This includes any other sources of acetaminophen you may take on a regular basis. - Regular strength (200 mg/tab) Advil (ibuprofen) 3-4 tabs every 4-6 hours as needed. Do not exceed a dose of 3200 mg per day. Follow-up with your primary care provider if you have persistent pain or difficulty walking. Return to the emergency department with any worsening or new/concerning symptoms. Problem Qualifiers Primary Impression: Strain of left hip Encounter type: initial encounter Qualified Codes: S76.012A - Strain of muscle, fascia and tendon of left hip, initial encounter
[2017-07-13 22:50] VITALS: BP 100/60; PULSE 75; O2SAT 100
== END 2017-07-13 22:52 | disposition home or self-care (01) ==
LOC: C.EDB 21:08 → C.EDD 22:52
DX: S76.012A Strain of muscle, fascia and tendon of left hip, initial encounter (principal); E06.3 Autoimmune thyroiditis; J45.909 Unspecified asthma, uncomplicated; Z79.899 Other long term (current) drug therapy; Z86.79 Personal history of other diseases of the circulatory system; Z87.442 Personal history of urinary calculi; W19.XXXA Unspecified fall, initial encounter

== ENCOUNTER → 2017-10-04 | Day surgery (SDC) | payer OTHER ==
[~2017-10-04] VITALS: Ht 170.2 cm; Wt 57.0 kg
[~2017-10-04] MED LIST changes: +CHOL2000 PO; +COSYNTROPIN INJ 1 MCG in SYRINGE 0 ML IV SCH; +CYCL10TA6 PO; +LEVO75TA PO; +LEVO75TA5 PO
[2017-10-04 07:55] VITALS: BP 105/67; PULSE 84; TEMP 36.9; O2SAT 100; Ht 170.2 cm; Wt 57.0 kg
[2017-10-04 09:05] VITALS: BP 98/64; PULSE 75; TEMP 37; O2SAT 100
--- NOTE | 2017-10-04 09:10 | NUR ---
PT REFERRED TO [facility] FOR INFO ON CORTROSYN STIM TESTING D/T NO PREPARED INFO IN [facility] TO PROVIDE TO PT. 30 MIN LABS DRAWN WITH VS OBTAINED.
[2017-10-04 09:35] VITALS: BP 104/68; PULSE 68; TEMP 37; O2SAT 100
[2017-10-04 09:41] VITALS: BP 104/68; PULSE 68; TEMP 37; O2SAT 100
== END | disposition home or self-care (01) ==
LOC: C.MTU 07:52
PROVIDERS: ATTEND Internal Medicine Endocrinology, Diabetes & Metabolism
DX: R53.83 Other fatigue (principal); R61 Generalized hyperhidrosis

== ENCOUNTER → 2017-10-11 | Outpatient (CLI) | payer OTHER ==
[~2017-10-11] VITALS: Ht 170.2 cm; Wt 58.0 kg
[~2017-10-11] MED LIST changes: -COSYNTROPIN INJ 1 MCG in SYRINGE 0 ML IV SCH; -HYDR-5688 PO; -LEVO75TA PO
[2017-10-11 13:24] VITALS: BP 108/69; PULSE 101; Ht 170.2 cm; Wt 58.0 kg
== END | disposition home or self-care (01) ==
LOC: C.NEUR 13:02
PROVIDERS: ATTEND Internal Medicine Pulmonary Disease
DX: G47.19 Other hypersomnia (principal); R53.83 Other fatigue

== ENCOUNTER → 2018-01-10 | Outpatient (CLI) | payer OTHER | END | disposition home or self-care (01) | LOC: C.LABBC 10:15 | PROVIDERS: ATTEND Internal Medicine Endocrinology, Diabetes & Metabolism | DX: R53.83 Other fatigue (principal); R61 Generalized hyperhidrosis; E03.9 Hypothyroidism, unspecified ==

== ENCOUNTER → 2018-01-21 | Outpatient (CLI) | payer OTHER ==
[~2018-01-21] MED LIST changes: +GADAVIST IV PRN
--- NOTE | 2018-01-21 14:03 | DIAGNOSTIC IMAGING REPORT ---
MRI OF THE BRAIN COMBO CLINICAL HISTORY: Lower extremity paresthesias. Headache and dizziness. COMPARISON STUDY: No priors. TECHNIQUE: MRI of the brain was performed utilizing various T1 and T2-weighted sequences in the axial, sagittal, and coronal planes. Contrast-enhanced sequences were acquired following the administration of 6 cc of Gadavist. The examination was performed using the multiple sclerosis protocol. FINDINGS: Brain parenchyma: The brain parenchyma is normal in appearance. There is no hemorrhage or mass effect. There is no restricted diffusion to suggest acute ischemia. No enhancing mass lesion is identified on the postcontrast images. Maurer-white matter differentiation is preserved. No extra-axial fluid collection is seen. The cerebellar tonsils are normal in configuration. Ventricles, sulci, and cisterns: Normal in configuration. Pituitary and sella: Unremarkable. Intracranial vasculature: Normal flow voids are maintained at the skull base. Orbits: The bony orbits are grossly intact. Orbital contents are normal in appearance. Sinuses and mastoids: Clear. Calvarium: Unremarkable. Cervical cord: Partially visualized cervical spinal cord is normal in morphology and signal intensity. IMPRESSION: No acute intracranial abnormality. Electronically signed by: Rodney Robles M.D. 01/21/2018 2:02 PM Dictated Date/Time: 01/21/2018 1:58 PM
== END | disposition home or self-care (01) ==
LOC: C.MRIBC 12:39
PROVIDERS: ATTEND Nurse Practitioner
DX: R51 Headache (principal); R20.2 Paresthesia of skin; R29.898 Other symptoms and signs involving the musculoskeletal system